=== PATIENT | female | born 1985 | race African-American/Black ===

== ENCOUNTER 2017-05-08 11:56 | Emergency (ER) | payer OTHER ==
[2017-05-08] MEDS: KETOROLAC 60 MG INJ IM (12:30)
== END 2017-05-08 12:45 | disposition home or self-care (01) ==
LOC: FTE 11:56
DX: M54.42 Lumbago with sciatica, left side (principal); F17.210 Nicotine dependence, cigarettes, uncomplicated
CPT/HCPCS: 96372; 99284-25